=== PATIENT | female | born 1980 | race Caucasian/White ===

== ENCOUNTER 2018-11-12 16:42 | Emergency (ER) | payer OTHER ==
[~2018-11-12] VITALS: Ht 154.9 cm; Wt 76.7 kg
[2018-11-12 17:34] LABS: ABSOLUTE EOSINOPHILS 0.1 thou/uL (0.0-0.7); ABSOLUTE LYMPHOCYTES 1.9 thou/uL (0.8-5.3); ABSOLUTE MONOCYTES 0.6 thou/uL (0.0-1.2); ABSOLUTE NEUTROPHILS 6.7 thou/uL (1.6-8.1); BASOPHILS 0.5 %; EOSINOPHILS 0.7 %; HEMATOCRIT 46.1 % (37.0-47.0); MCH 31.2 pg (26.0-34.0); MCHC 34.8 g/dL (28.0-37.0); MCV 89.6 fL (80.0-100.0); MONOCYTES 6.1 %; MPV 9.9 fl. (7.2-11.1); NUCLEATED RBCS 0 /100WBC; PLATELET COUNT* 302 thou/uL (150-400); POLYS 71.7 %; RBC 5.14 mil/uL (4.20-5.00); RDW-CV 12.4 % (10.5-14.5); WBC 9.3 thou/uL (4.0-11.0)
[2018-11-12 17:44] LABS: CALCIUM 9.3 mg/dL (8.5-10.1); CREATININE 1.1 mg/dL (0.6-1.3); POTASSIUM 3.6 mmol/L (3.5-5.1)
[2018-11-12 17:48] LABS: ALBUMIN 4.1 g/dL (3.4-5.0); TOTAL BILIRUBIN 0.7 mg/dL (<0.1-1.0); TOTAL PROTEIN 8.3 g/dL (6.4-8.2)
[2018-11-12 18:02] LABS: URINE BILIRUBIN NEGATIVE (Negative); URINE BLOOD NEGATIVE (Negative); URINE CLARITY CLEAR; URINE COLOR YELLOW; URINE GLUCOSE-RANDOM NEGATIVE (Negative); URINE KETONES TRACE (Negative); URINE LEUKOCYTES-REFLEX NEGATIVE (Negative); URINE NITRITE-REFLEX NEGATIVE (Negative); URINE PROTEIN NEGATIVE (Negative); URINE SPECIFIC GRAVITY 1.025 (1.005-1.030)
[2018-11-12] MEDS ORDERED: ZOFRAN ODT4 MG PO (19:09)
[2018-11-12 19:17] VITALS: BP 123/65
[2018-11-13] MEDS ORDERED: ZOFRAN4 MG PO (10:30)
[2018-11-13] MEDS ORDERED: PERCOCET 5-3251 EACH PO (10:30)
== END 2018-11-12 19:17 | disposition home or self-care (01) ==
LOC: M.ERS 16:42
PROVIDERS: Physician Assistant
DX: R10.13 Epigastric pain (principal); R11.2 Nausea with vomiting, unspecified; Z90.711 Acquired absence of uterus with remaining cervical stump

== ENCOUNTER 2018-11-13 07:44 | Emergency (ER) | payer OTHER ==
[~2018-11-13] VITALS: Ht 154.9 cm; Wt 72.6 kg
[~2018-11-13 07:44] MED LIST: ZOFRAN ODT4 MG PO
[2018-11-13 08:13] LABS: ABSOLUTE EOSINOPHILS 0.1 thou/uL (0.0-0.7); ABSOLUTE LYMPHOCYTES 1.2 thou/uL (0.8-5.3); ABSOLUTE MONOCYTES 0.4 thou/uL (0.0-1.2); ABSOLUTE NEUTROPHILS 3.4 thou/uL (1.6-8.1); BASOPHILS 0.4 %; EOSINOPHILS 1.4 %; HEMATOCRIT 41.8 % (37.0-47.0); HEMOGLOBIN 14.4 gm/dL (12.0-15.0); LYMPHOCYTES 23.1 %; MCH 30.8 pg (26.0-34.0); MCHC 34.5 g/dL (28.0-37.0); MCV 89.2 fL (80.0-100.0); MONOCYTES 7.9 %; MPV 9.4 fl. (7.2-11.1); NUCLEATED RBCS 0 /100WBC; POLYS 67.2 %; RBC 4.68 mil/uL (4.20-5.00); RDW-CV 12.2 % (10.5-14.5); WBC 5.1 thou/uL (4.0-11.0)
[2018-11-13 08:15] LABS: PLATELET COUNT* 210 thou/uL (150-400)
[2018-11-13 08:20] LABS: CALCIUM 8.7 mg/dL (8.5-10.1); CREATININE 1.1 mg/dL (0.6-1.3); POTASSIUM 3.8 mmol/L (3.5-5.1)
[2018-11-13 08:32] LABS: ALBUMIN 3.8 g/dL (3.4-5.0); TOTAL BILIRUBIN 0.7 mg/dL (<0.1-1.0); TOTAL PROTEIN 7.2 g/dL (6.4-8.2)
[2018-11-13 10:09] LABS: URINE BILIRUBIN NEGATIVE (Negative); URINE BLOOD NEGATIVE (Negative); URINE CLARITY CLEAR; URINE COLOR YELLOW; URINE GLUCOSE-RANDOM NEGATIVE (Negative); URINE KETONES 1+ (Negative); URINE LEUKOCYTES-REFLEX NEGATIVE (Negative); URINE NITRITE-REFLEX NEGATIVE (Negative); URINE PROTEIN NEGATIVE (Negative); URINE UROBILINOGEN 0.2 E.U./dl (0.2-1.0)
[2018-11-13] MEDS ORDERED: PERCOCET 5-3251 EACH PO (10:30)
[2018-11-13] MEDS ORDERED: ZOFRAN4 MG PO (10:30)
[2018-11-13 10:51] VITALS: BP 128/72
== END 2018-11-13 10:52 | disposition home or self-care (01) ==
LOC: M.ERS 07:44
PROVIDERS: Emergency Medicine
DX: K80.20 Calculus of gallbladder without cholecystitis without obstruction (principal); F32.9 Major depressive disorder, single episode, unspecified; F41.9 Anxiety disorder, unspecified; M79.7 Fibromyalgia; Z90.710 Acquired absence of both cervix and uterus; R11.10 Vomiting, unspecified

== ENCOUNTER 2019-02-19 19:28 | Emergency (ER) | payer OTHER ==
[~2019-02-19] VITALS: Ht 154.9 cm; Wt 78.0 kg
[~2019-02-19 19:28] MED LIST changes: +PERCOCET 5-3251 EACH PO; +ZOFRAN4 MG PO
[2019-02-19] MEDS ORDERED: BENADRYL25 MG PO (19:37)
[2019-02-19] MEDS ORDERED: XYZAL5 MG PO (21:03)
[2019-02-19] MEDS ORDERED: PEPCID20 MG PO (21:03)
[2019-02-19 21:18] VITALS: BP 146/88
== END 2019-02-19 21:22 | disposition home or self-care (01) ==
LOC: M.ERS 19:28
DX: L50.9 Urticaria, unspecified (principal); F98.8 Other specified behavioral and emotional disorders with onset usually occurring in childhood and adolescence; F32.9 Major depressive disorder, single episode, unspecified; F41.9 Anxiety disorder, unspecified; M79.7 Fibromyalgia; Z90.711 Acquired absence of uterus with remaining cervical stump